=== PATIENT | male | born 1940 | race Caucasian/White ===

== ENCOUNTER 2020-03-06 15:34 | Emergency (ER) | payer OTHER ==
[~2020-03-06] VITALS: Ht 193 cm; Wt 74.8 kg
[2020-03-06 15:36] VITALS: BP 139/79; Ht 193 cm; Wt 74.8 kg
== END 2020-03-06 17:07 | disposition home or self-care (01) ==
LOC: ED 15:34
DX: U07.1 COVID-19 (principal); I10 Essential (primary) hypertension; Z98.890 Other specified postprocedural states; Z88.0 Allergy status to penicillin